=== PATIENT | male | born 1965 | race African-American/Black ===

== ENCOUNTER 2017-11-28 13:13 | Inpatient (IN) | payer OTHER ==
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
--- NOTE | 2017-11-28 15:56 | HP ---
ADALBERTO MURPHY Rehab Assess/Revision - Admission History Admitted to Rehab from: [facility] Date of Admission to Rehab: 11/28/17 - Vital signs Vital Signs: Vital Signs Period Temp Pulse Resp BP Sys/Shrestha Pulse Ox Last 24 Hr 98 F 79 18 109/69 - Findings Detox History & Physical reviewed: Yes Concur with findings: Yes Comments/Additional Findings: FOR REHAB PROTOCOL Inpatient Rehab Admission - Initial Determination Are CD services needed?: Yes Free of communicable disease: Yes Not in need of hospitalization: Yes - Rehab Admission Criteria Previous failed treatment: Yes Poor recovery environment: Yes Comorbidities: Yes Lacks judgement: No Patient is meeting Inpatient Rehab admission criteria:: Yes
[2017-11-28] MEDS ORDERED: IBUPROFEN 400 MG TABLET (FP) PO PRN (15:57)
[2017-11-28] MEDS ORDERED: ACETAMINOPHEN 325 MG TABLET (FP) PO PRN (15:57)
[2017-11-28] MEDS ORDERED: guaiFENesin/D-METHORPHAN HB 10 ML UNIT-DOSE CUPS PO PRN (15:57)
[2017-11-28] MEDS ORDERED: MAG HYDROX/AL HYDROX/SIMETH 30 ML UNIT-DOSE CUP PO PRN (15:57)
[2017-11-28] MEDS ORDERED: P-EPHED 60MG/TRIPROLIDI 2.5MG TABLET PO PRN (15:57)
[2017-11-28] MEDS ORDERED: MAGNESIUM CITRATE 300 ML BOTTLE PO PRN (15:57)
[2017-11-28] MEDS ORDERED: NICOTINE POLACRILEX 2 MG GUM BUC PRN (15:57)
[2017-11-28] MEDS ORDERED: MAGNESIUM HYDROX 2400MG/30ML ORAL SUSPENSION 30 ML CUP PO PRN (15:57)
[2017-11-28] MEDS ORDERED: LOPERAMIDE HCL 2 MG CAPSULE PO PRN (15:57)
[2017-11-28] MEDS ORDERED: hydrOXYzine PAMOATE 50 MG CAPSULE (FP) PO PRN (15:57)
[2017-11-28] MEDS ORDERED: MENTHOL/PHENOL 1 EACH UD MM PRN (15:57)
[2017-11-28] MEDS: THIAMINE HCL 100 MG TABLET (FP) PO SCH (21:32)
[2017-11-28] MEDS: DIVALPROEX SODIUM 250 MG TABLET E.C. PO SCH (21:32)
[2017-11-28] MEDS: MELATONIN 5 MG TABLETS PO SCH (21:32)
[2017-11-29] MEDS: DIVALPROEX SODIUM 250 MG TABLET E.C. PO SCH ×2 (10:20→21:43)
[2017-11-29] MEDS: PANTOPRAZOLE 40 MG TABLET (FP) PO SCH (10:20)
[2017-11-29] MEDS: PRENATAL VITAMINS W/ FOLIC ACID TABLET (FP) PO SCH (10:20)
[2017-11-29] MEDS: NICOTINE 21 MG/24 HOURS TOPICAL PATCH TD SCH (10:20)
[2017-11-29] MEDS: MELATONIN 5 MG TABLETS PO SCH (21:42)
[2017-11-29] MEDS: THIAMINE HCL 100 MG TABLET (FP) PO SCH (21:43)
[2017-11-30] MEDS: PANTOPRAZOLE 40 MG TABLET (FP) PO SCH (09:56)
[2017-11-30] MEDS: NICOTINE 21 MG/24 HOURS TOPICAL PATCH TD SCH (09:56)
[2017-11-30] MEDS: DIVALPROEX SODIUM 250 MG TABLET E.C. PO SCH ×2 (09:56→21:11)
[2017-11-30] MEDS: PRENATAL VITAMINS W/ FOLIC ACID TABLET (FP) PO SCH (09:56)
[2017-11-30] MEDS: THIAMINE HCL 100 MG TABLET (FP) PO SCH (21:11)
[2017-11-30] MEDS: MELATONIN 5 MG TABLETS PO SCH (21:11)
[2017-12-01] MEDS: PANTOPRAZOLE 40 MG TABLET (FP) PO SCH (10:45)
[2017-12-01] MEDS: PRENATAL VITAMINS W/ FOLIC ACID TABLET (FP) PO SCH (10:45)
[2017-12-01] MEDS: NICOTINE 21 MG/24 HOURS TOPICAL PATCH TD SCH (10:46)
[2017-12-01] MEDS: DIVALPROEX SODIUM 250 MG TABLET E.C. PO SCH ×2 (12:19→21:46)
[2017-12-01] MEDS: MELATONIN 5 MG TABLETS PO SCH (21:46)
[2017-12-01] MEDS: THIAMINE HCL 100 MG TABLET (FP) PO SCH (21:47)
[2017-12-02] MEDS: DIVALPROEX SODIUM 250 MG TABLET E.C. PO SCH ×2 (10:08→21:32)
[2017-12-02] MEDS: NICOTINE 21 MG/24 HOURS TOPICAL PATCH TD SCH (10:09)
[2017-12-02] MEDS: PANTOPRAZOLE 40 MG TABLET (FP) PO SCH (10:09)
[2017-12-02] MEDS: PRENATAL VITAMINS W/ FOLIC ACID TABLET (FP) PO SCH (10:09)
[2017-12-02] MEDS: THIAMINE HCL 100 MG TABLET (FP) PO SCH (21:32)
[2017-12-02] MEDS: MELATONIN 5 MG TABLETS PO SCH (21:32)
[2017-12-03] MEDS: PRENATAL VITAMINS W/ FOLIC ACID TABLET (FP) PO SCH (09:56)
[2017-12-03] MEDS: NICOTINE 21 MG/24 HOURS TOPICAL PATCH TD SCH (09:56)
[2017-12-03] MEDS: DIVALPROEX SODIUM 250 MG TABLET E.C. PO SCH ×2 (09:56→21:29)
[2017-12-03] MEDS: PANTOPRAZOLE 40 MG TABLET (FP) PO SCH (09:56)
--- NOTE | 2017-12-03 12:37 | PN ---
Psychiatric Progress Note Vital Signs: Vital Signs Period Temp Pulse Resp BP Sys/Shrestha Pulse Ox Last 24 Hr 98.3 F 63 18-18 125/80 Date of Session: 12/03/17 Chief Complaint:: "I can't sleep." HPI: Pt. admitted to for alcohol and cocaine dependence. ROS: Unremarkable Current Medications: Active Medications Generic Name Dose Route Start Last Admin Trade Name Freq PRN Reason Stop Dose Admin Acetaminophen 650 mg 11/28/17 15:57 Tylenol - PO Q4H PRN FEVER Al Hydroxide/Mg Hydroxide 30 ml 11/28/17 15:57 Mylanta Oral Suspension - PO Q6H PRN DYSPEPSIA Bupropion HCl 150 mg 11/29/17 10:00 12/03/17 09:56 Wellbutrin Xl - PO 150 mg DAILY NELLY Administration Divalproex Sodium 250 mg 11/28/17 22:00 12/03/17 09:56 Depakote - PO 250 mg BID NELLY Administration Eucalyptus/Menthol/Phenol/Sorbitol 1 each 11/28/17 15:57 Cepastat Lozenge - MM Q4H PRN SORE THROAT Guaifenesin 10 ml 11/28/17 15:57 Robitussin Dm - PO Q6H PRN COUGH Hydroxyzine Pamoate 50 mg 11/28/17 15:57 12/03/17 03:42 Vistaril - PO 50 mg Q4H PRN Administration AGITATION Ibuprofen 400 mg 11/28/17 15:57 Motrin - PO Q6H PRN Pain Level 4-6 Loperamide HCl 4 mg 11/28/17 15:57 Imodium - PO Q6H PRN DIARRHEA Magnesium Citrate 300 ml 11/28/17 15:57 Citroma - PO Q48H PRN CONSTIPATION Magnesium Hydroxide 30 ml 11/28/17 15:57 Milk Of Magnesia - PO DAILY PRN CONSTIPATION Melatonin 5 mg 11/28/17 22:00 12/02/17 21:32 Melatonin PO 5 mg HS NELLY Administration Nicotine 21 mg 11/29/17 10:00 12/03/17 09:56 Nicoderm Patch - TD Not Given DAILY NELLY Nicotine Polacrilex 2 mg 11/28/17 15:57 Nicorette Gum - BUC Q2H PRN NICOTINE REPLACEMENT RX Pantoprazole Sodium 40 mg 11/29/17 10:00 12/03/17 09:56 Protonix - PO 40 mg DAILY NELLY Administration Multivit/Folic Acid/Iron 1 tab 11/29/17 10:00 12/03/17 09:56 Vitamins (Sjr) - PO 1 tab DAILY NELLY Administration Pseudoephedrine/Triprolidine 1 combo 11/28/17 15:57 Actifed - PO TID PRN NASAL CONGESTION Thiamine HCl 100 mg 11/28/17 22:00 12/02/17 21:32 Vitamin B1 - PO 100 mg HS NELLY Administration Medication(s) Change(s): Yes. Will add trazodone 50mg qhs. Current Side Effect: No Lab tests ordered: No Lab tests reviewed: Yes Provider note:: Pt. c/o difficulty sleeping. Chart reviewed. Dr. Taylor's notes read and appreciated. Patient's trazodone was initally held due to oversedation upon admission. Today patient reports difficulty sleeping and is requesting a sleep aid. Will order trazodone 50mg qhs. Benefits and side effects discussed. Pt made aware of Priapism when taking trazdone. Verbal consent given. Will continue to monitor. Total face to face time:: 25 Mental Status Exam - Mental Status Exam Alert and Oriented to: Time, Place, Person Cognitive Function: Good Patient Appearance: Well Groomed Mood: Euthymic Affect: Mood Congruent Patient Behavior: Cooperative Speech Pattern: Appropriate Voice Loudness: Normal Thought Process: Goal Oriented Thought Disorder: Not Present Hallucinations: Denies Suicidal Ideation: Denies Homicidal Ideation: Denies Insight/Judgement: Poor Sleep: Poorly Appetite: Fair Muscle strength/Tone: Normal Gait/Station: Normal Psychiatric Treatment Plan - Problem List (1) Nicotine dependence Current Visit: Yes Qualifiers: Nicotine product type: cigarettes Substance use status: uncomplicated Qualified Code(s): F17.210 - Nicotine dependence, cigarettes, uncomplicated (2) Bipolar disorder Current Visit: Yes Qualifiers: Current bipolar episode type: depressed Psychotic features: without psychotic features Comment: History. (3) Posttraumatic stress disorder Current Visit: Yes (4) Alcohol dependence Current Visit: Yes (5) Cocaine dependence Current Visit: Yes
--- NOTE | 2017-12-03 17:25 | PN ---
[facility] Progress Note Note: Patient reports having rash to feet. +itching. No open areas. Obj: Feet with dry, cracked heels. +rash in between toes. A/P: Fungal rash Will order Nystatin Powder topically BID Monitor clinically
[2017-12-03] MEDS: traZODone HCL 50 MG TABLET (FP) PO SCH (21:29)
[2017-12-03] MEDS: MELATONIN 5 MG TABLETS PO SCH (21:29)
[2017-12-03] MEDS: THIAMINE HCL 100 MG TABLET (FP) PO SCH (21:29)
[2017-12-04] MEDS: PRENATAL VITAMINS W/ FOLIC ACID TABLET (FP) PO SCH (10:13)
[2017-12-04] MEDS: NICOTINE 21 MG/24 HOURS TOPICAL PATCH TD SCH (10:13)
[2017-12-04] MEDS: DIVALPROEX SODIUM 250 MG TABLET E.C. PO SCH ×2 (10:13→22:01)
[2017-12-04] MEDS: PANTOPRAZOLE 40 MG TABLET (FP) PO SCH (10:13)
[2017-12-04] MEDS: NYSTATIN POWDER 100,000 UNITS/GM - 15 GM TOPICAL POWDER TP SCH (10:46)
[2017-12-04] MEDS: traZODone HCL 50 MG TABLET (FP) PO SCH (22:01)
[2017-12-04] MEDS: THIAMINE HCL 100 MG TABLET (FP) PO SCH (22:01)
[2017-12-04] MEDS: MELATONIN 5 MG TABLETS PO SCH (22:01)
[2017-12-05] MEDS: PRENATAL VITAMINS W/ FOLIC ACID TABLET (FP) PO SCH (10:12)
[2017-12-05] MEDS: NICOTINE 21 MG/24 HOURS TOPICAL PATCH TD SCH (10:12)
[2017-12-05] MEDS: PANTOPRAZOLE 40 MG TABLET (FP) PO SCH (10:12)
[2017-12-05] MEDS: DIVALPROEX SODIUM 250 MG TABLET E.C. PO SCH ×2 (10:12→21:33)
[2017-12-05] MEDS: NYSTATIN POWDER 100,000 UNITS/GM - 15 GM TOPICAL POWDER TP SCH ×2 (11:00→11:37)
[2017-12-05] MEDS: traZODone HCL 50 MG TABLET (FP) PO SCH (21:33)
[2017-12-05] MEDS: THIAMINE HCL 100 MG TABLET (FP) PO SCH (21:33)
[2017-12-05] MEDS: MELATONIN 5 MG TABLETS PO SCH (21:33)
[2017-12-06] MEDS: DIVALPROEX SODIUM 250 MG TABLET E.C. PO SCH ×2 (10:37→21:53)
[2017-12-06] MEDS: PANTOPRAZOLE 40 MG TABLET (FP) PO SCH (10:37)
[2017-12-06] MEDS: PRENATAL VITAMINS W/ FOLIC ACID TABLET (FP) PO SCH (10:37)
[2017-12-06] MEDS: NICOTINE 21 MG/24 HOURS TOPICAL PATCH TD SCH (10:38)
[2017-12-06] MEDS: NYSTATIN POWDER 100,000 UNITS/GM - 15 GM TOPICAL POWDER TP SCH (10:38)
[2017-12-06] MEDS: traZODone HCL 50 MG TABLET (FP) PO SCH (21:53)
[2017-12-06] MEDS: MELATONIN 5 MG TABLETS PO SCH (21:53)
[2017-12-06] MEDS: THIAMINE HCL 100 MG TABLET (FP) PO SCH (21:53)
[2017-12-07] MEDS: DIVALPROEX SODIUM 250 MG TABLET E.C. PO SCH ×2 (10:45→21:22)
[2017-12-07] MEDS: PANTOPRAZOLE 40 MG TABLET (FP) PO SCH (10:45)
[2017-12-07] MEDS: PRENATAL VITAMINS W/ FOLIC ACID TABLET (FP) PO SCH (10:45)
[2017-12-07] MEDS: NICOTINE 21 MG/24 HOURS TOPICAL PATCH TD SCH (10:46)
[2017-12-07] MEDS: NYSTATIN POWDER 100,000 UNITS/GM - 15 GM TOPICAL POWDER TP SCH (10:46)
[2017-12-07] MEDS: MELATONIN 5 MG TABLETS PO SCH (21:22)
[2017-12-07] MEDS: THIAMINE HCL 100 MG TABLET (FP) PO SCH (21:22)
[2017-12-07] MEDS: traZODone HCL 50 MG TABLET (FP) PO SCH (21:22)
[2017-12-08] MEDS: PRENATAL VITAMINS W/ FOLIC ACID TABLET (FP) PO SCH (10:17)
[2017-12-08] MEDS: PANTOPRAZOLE 40 MG TABLET (FP) PO SCH (10:17)
[2017-12-08] MEDS: NYSTATIN POWDER 100,000 UNITS/GM - 15 GM TOPICAL POWDER TP SCH (10:17)
[2017-12-08] MEDS: DIVALPROEX SODIUM 250 MG TABLET E.C. PO SCH ×2 (10:17→22:00)
[2017-12-08] MEDS: NICOTINE 21 MG/24 HOURS TOPICAL PATCH TD SCH (10:18)
[2017-12-08] MEDS: THIAMINE HCL 100 MG TABLET (FP) PO SCH (21:59)
[2017-12-08] MEDS: traZODone HCL 50 MG TABLET (FP) PO SCH (22:00)
[2017-12-08] MEDS: MELATONIN 5 MG TABLETS PO SCH (22:00)
[2017-12-09] MEDS: PRENATAL VITAMINS W/ FOLIC ACID TABLET (FP) PO SCH (10:28)
[2017-12-09] MEDS: PANTOPRAZOLE 40 MG TABLET (FP) PO SCH (10:28)
[2017-12-09] MEDS: DIVALPROEX SODIUM 250 MG TABLET E.C. PO SCH ×2 (10:28→21:31)
[2017-12-09] MEDS: NYSTATIN POWDER 100,000 UNITS/GM - 15 GM TOPICAL POWDER TP SCH (10:29)
[2017-12-09] MEDS: NICOTINE 21 MG/24 HOURS TOPICAL PATCH TD SCH (10:30)
[2017-12-09] MEDS: MELATONIN 5 MG TABLETS PO SCH (21:31)
[2017-12-09] MEDS: THIAMINE HCL 100 MG TABLET (FP) PO SCH (21:31)
[2017-12-09] MEDS: traZODone HCL 50 MG TABLET (FP) PO SCH (21:31)
[2017-12-10] MEDS: PRENATAL VITAMINS W/ FOLIC ACID TABLET (FP) PO SCH (10:34)
[2017-12-10] MEDS: DIVALPROEX SODIUM 250 MG TABLET E.C. PO SCH ×2 (10:34→21:36)
[2017-12-10] MEDS: PANTOPRAZOLE 40 MG TABLET (FP) PO SCH (10:34)
[2017-12-10] MEDS: NICOTINE 21 MG/24 HOURS TOPICAL PATCH TD SCH (10:35)
[2017-12-10] MEDS: NYSTATIN POWDER 100,000 UNITS/GM - 15 GM TOPICAL POWDER TP SCH (10:35)
[2017-12-10] MEDS: MELATONIN 5 MG TABLETS PO SCH (21:36)
[2017-12-10] MEDS: traZODone HCL 50 MG TABLET (FP) PO SCH (21:36)
[2017-12-10] MEDS: THIAMINE HCL 100 MG TABLET (FP) PO SCH (21:36)
[2017-12-11] MEDS: NICOTINE 21 MG/24 HOURS TOPICAL PATCH TD SCH (10:23)
[2017-12-11] MEDS: PANTOPRAZOLE 40 MG TABLET (FP) PO SCH (10:23)
[2017-12-11] MEDS: DIVALPROEX SODIUM 250 MG TABLET E.C. PO SCH ×2 (10:23→21:56)
[2017-12-11] MEDS: PRENATAL VITAMINS W/ FOLIC ACID TABLET (FP) PO SCH (10:23)
[2017-12-11] MEDS: NYSTATIN POWDER 100,000 UNITS/GM - 15 GM TOPICAL POWDER TP SCH (10:24)
[2017-12-11] MEDS: traZODone HCL 50 MG TABLET (FP) PO SCH (21:56)
[2017-12-11] MEDS: MELATONIN 5 MG TABLETS PO SCH (21:56)
[2017-12-11] MEDS: THIAMINE HCL 100 MG TABLET (FP) PO SCH (21:56)
[2017-12-12] MEDS: PANTOPRAZOLE 40 MG TABLET (FP) PO SCH (10:31)
[2017-12-12] MEDS: DIVALPROEX SODIUM 250 MG TABLET E.C. PO SCH ×2 (10:31→21:33)
[2017-12-12] MEDS: NYSTATIN POWDER 100,000 UNITS/GM - 15 GM TOPICAL POWDER TP SCH (10:31)
[2017-12-12] MEDS: NICOTINE 21 MG/24 HOURS TOPICAL PATCH TD SCH (10:31)
[2017-12-12] MEDS: PRENATAL VITAMINS W/ FOLIC ACID TABLET (FP) PO SCH (10:31)
[2017-12-12] MEDS: traZODone HCL 50 MG TABLET (FP) PO SCH (21:33)
[2017-12-12] MEDS: MELATONIN 5 MG TABLETS PO SCH (21:33)
[2017-12-12] MEDS: THIAMINE HCL 100 MG TABLET (FP) PO SCH (21:33)
[2017-12-13] MEDS: DIVALPROEX SODIUM 250 MG TABLET E.C. PO SCH ×2 (10:22→21:45)
[2017-12-13] MEDS: NICOTINE 21 MG/24 HOURS TOPICAL PATCH TD SCH (10:22)
[2017-12-13] MEDS: PRENATAL VITAMINS W/ FOLIC ACID TABLET (FP) PO SCH (10:22)
[2017-12-13] MEDS: PANTOPRAZOLE 40 MG TABLET (FP) PO SCH (10:22)
[2017-12-13] MEDS: NYSTATIN POWDER 100,000 UNITS/GM - 15 GM TOPICAL POWDER TP SCH (10:23)
[2017-12-13] MEDS: THIAMINE HCL 100 MG TABLET (FP) PO SCH (21:45)
[2017-12-13] MEDS: traZODone HCL 50 MG TABLET (FP) PO SCH (21:45)
[2017-12-13] MEDS: MELATONIN 5 MG TABLETS PO SCH (21:45)
[2017-12-14] MEDS: PANTOPRAZOLE 40 MG TABLET (FP) PO SCH (10:06)
[2017-12-14] MEDS: NYSTATIN POWDER 100,000 UNITS/GM - 15 GM TOPICAL POWDER TP SCH (10:06)
[2017-12-14] MEDS: DIVALPROEX SODIUM 250 MG TABLET E.C. PO SCH ×2 (10:06→21:18)
[2017-12-14] MEDS: NICOTINE 21 MG/24 HOURS TOPICAL PATCH TD SCH (10:06)
[2017-12-14] MEDS: PRENATAL VITAMINS W/ FOLIC ACID TABLET (FP) PO SCH (10:06)
[2017-12-14] MEDS: THIAMINE HCL 100 MG TABLET (FP) PO SCH (21:17)
[2017-12-14] MEDS: traZODone HCL 50 MG TABLET (FP) PO SCH (21:18)
[2017-12-14] MEDS: MELATONIN 5 MG TABLETS PO SCH (21:18)
[2017-12-15] MEDS: PRENATAL VITAMINS W/ FOLIC ACID TABLET (FP) PO SCH (10:49)
[2017-12-15] MEDS: NICOTINE 21 MG/24 HOURS TOPICAL PATCH TD SCH (10:49)
[2017-12-15] MEDS: PANTOPRAZOLE 40 MG TABLET (FP) PO SCH (10:49)
[2017-12-15] MEDS: NYSTATIN POWDER 100,000 UNITS/GM - 15 GM TOPICAL POWDER TP SCH (10:49)
[2017-12-15] MEDS: DIVALPROEX SODIUM 250 MG TABLET E.C. PO SCH ×2 (10:49→21:27)
[2017-12-15] MEDS: traZODone HCL 50 MG TABLET (FP) PO SCH (21:27)
[2017-12-15] MEDS: THIAMINE HCL 100 MG TABLET (FP) PO SCH (21:27)
[2017-12-15] MEDS: MELATONIN 5 MG TABLETS PO SCH (21:27)
[2017-12-15] MEDS: NYSTATIN 100000 UNIT/GM TOPICAL OINTMENT 15 GM TUBE TP SCH (21:28)
[2017-12-16] MEDS: PRENATAL VITAMINS W/ FOLIC ACID TABLET (FP) PO SCH (10:36)
[2017-12-16] MEDS: NICOTINE 21 MG/24 HOURS TOPICAL PATCH TD SCH (10:36)
[2017-12-16] MEDS: DIVALPROEX SODIUM 250 MG TABLET E.C. PO SCH ×2 (10:36→21:20)
[2017-12-16] MEDS: NYSTATIN 100000 UNIT/GM TOPICAL OINTMENT 15 GM TUBE TP SCH ×2 (10:36→21:21)
[2017-12-16] MEDS: PANTOPRAZOLE 40 MG TABLET (FP) PO SCH (10:36)
[2017-12-16] MEDS: MELATONIN 5 MG TABLETS PO SCH (21:20)
[2017-12-16] MEDS: THIAMINE HCL 100 MG TABLET (FP) PO SCH (21:20)
[2017-12-16] MEDS: traZODone HCL 50 MG TABLET (FP) PO SCH (21:20)
[2017-12-17] MEDS: PANTOPRAZOLE 40 MG TABLET (FP) PO SCH (10:14)
[2017-12-17] MEDS: NYSTATIN 100000 UNIT/GM TOPICAL OINTMENT 15 GM TUBE TP SCH ×2 (10:14→21:58)
[2017-12-17] MEDS: DIVALPROEX SODIUM 250 MG TABLET E.C. PO SCH ×2 (10:14→21:57)
[2017-12-17] MEDS: PRENATAL VITAMINS W/ FOLIC ACID TABLET (FP) PO SCH (10:14)
[2017-12-17] MEDS: NICOTINE 21 MG/24 HOURS TOPICAL PATCH TD SCH (10:14)
[2017-12-17] MEDS: traZODone HCL 50 MG TABLET (FP) PO SCH (21:57)
[2017-12-17] MEDS: MELATONIN 5 MG TABLETS PO SCH (21:57)
[2017-12-17] MEDS: THIAMINE HCL 100 MG TABLET (FP) PO SCH (21:57)
[2017-12-18] MEDS: DIVALPROEX SODIUM 250 MG TABLET E.C. PO SCH ×2 (10:17→21:47)
[2017-12-18] MEDS: PRENATAL VITAMINS W/ FOLIC ACID TABLET (FP) PO SCH (10:17)
[2017-12-18] MEDS: NYSTATIN 100000 UNIT/GM TOPICAL OINTMENT 15 GM TUBE TP SCH ×2 (10:18→21:48)
[2017-12-18] MEDS: NICOTINE 21 MG/24 HOURS TOPICAL PATCH TD SCH (10:18)
[2017-12-18] MEDS: PANTOPRAZOLE 40 MG TABLET (FP) PO SCH (10:18)
[2017-12-18] MEDS: MELATONIN 5 MG TABLETS PO SCH (21:47)
[2017-12-18] MEDS: traZODone HCL 50 MG TABLET (FP) PO SCH (21:47)
[2017-12-18] MEDS: THIAMINE HCL 100 MG TABLET (FP) PO SCH (21:47)
[2017-12-19] MEDS: NICOTINE 21 MG/24 HOURS TOPICAL PATCH TD SCH (10:24)
[2017-12-19] MEDS: DIVALPROEX SODIUM 250 MG TABLET E.C. PO SCH ×2 (10:24→21:40)
[2017-12-19] MEDS: NYSTATIN 100000 UNIT/GM TOPICAL OINTMENT 15 GM TUBE TP SCH ×2 (10:24→21:41)
[2017-12-19] MEDS: PANTOPRAZOLE 40 MG TABLET (FP) PO SCH (10:24)
[2017-12-19] MEDS: PRENATAL VITAMINS W/ FOLIC ACID TABLET (FP) PO SCH (10:24)
[2017-12-19] MEDS: traZODone HCL 50 MG TABLET (FP) PO SCH (21:40)
[2017-12-19] MEDS: MELATONIN 5 MG TABLETS PO SCH (21:40)
[2017-12-19] MEDS: THIAMINE HCL 100 MG TABLET (FP) PO SCH (21:40)
[2017-12-20] MEDS: NICOTINE 21 MG/24 HOURS TOPICAL PATCH TD SCH (09:58)
[2017-12-20] MEDS: PRENATAL VITAMINS W/ FOLIC ACID TABLET (FP) PO SCH (09:58)
[2017-12-20] MEDS: NYSTATIN 100000 UNIT/GM TOPICAL OINTMENT 15 GM TUBE TP SCH ×2 (09:58→21:31)
[2017-12-20] MEDS: PANTOPRAZOLE 40 MG TABLET (FP) PO SCH (09:58)
[2017-12-20] MEDS: DIVALPROEX SODIUM 250 MG TABLET E.C. PO SCH ×2 (09:58→21:31)
[2017-12-20] MEDS: MELATONIN 5 MG TABLETS PO SCH (21:30)
[2017-12-20] MEDS: THIAMINE HCL 100 MG TABLET (FP) PO SCH (21:31)
[2017-12-20] MEDS: traZODone HCL 50 MG TABLET (FP) PO SCH (21:31)
[2017-12-21] MEDS: DIVALPROEX SODIUM 250 MG TABLET E.C. PO SCH ×2 (10:14→21:31)
[2017-12-21] MEDS: NYSTATIN 100000 UNIT/GM TOPICAL OINTMENT 15 GM TUBE TP SCH ×2 (10:14→22:36)
[2017-12-21] MEDS: PRENATAL VITAMINS W/ FOLIC ACID TABLET (FP) PO SCH (10:14)
[2017-12-21] MEDS: PANTOPRAZOLE 40 MG TABLET (FP) PO SCH (10:15)
[2017-12-21] MEDS: NICOTINE 21 MG/24 HOURS TOPICAL PATCH TD SCH (10:15)
[2017-12-21] MEDS: THIAMINE HCL 100 MG TABLET (FP) PO SCH (21:31)
[2017-12-21] MEDS: MELATONIN 5 MG TABLETS PO SCH (21:32)
[2017-12-21] MEDS: traZODone HCL 50 MG TABLET (FP) PO SCH (21:32)
[2017-12-22] MEDS: PRENATAL VITAMINS W/ FOLIC ACID TABLET (FP) PO SCH (10:49)
[2017-12-22] MEDS: PANTOPRAZOLE 40 MG TABLET (FP) PO SCH (10:49)
[2017-12-22] MEDS: DIVALPROEX SODIUM 250 MG TABLET E.C. PO SCH ×2 (10:49→21:38)
[2017-12-22] MEDS: NICOTINE 21 MG/24 HOURS TOPICAL PATCH TD SCH (10:50)
[2017-12-22] MEDS: NYSTATIN 100000 UNIT/GM TOPICAL OINTMENT 15 GM TUBE TP SCH ×2 (12:20→21:39)
[2017-12-22] MEDS: MELATONIN 5 MG TABLETS PO SCH (21:38)
[2017-12-22] MEDS: THIAMINE HCL 100 MG TABLET (FP) PO SCH (21:39)
[2017-12-22] MEDS: traZODone HCL 50 MG TABLET (FP) PO SCH (21:39)
[2017-12-23] MEDS: PRENATAL VITAMINS W/ FOLIC ACID TABLET (FP) PO SCH (10:12)
[2017-12-23] MEDS: PANTOPRAZOLE 40 MG TABLET (FP) PO SCH (10:12)
[2017-12-23] MEDS: DIVALPROEX SODIUM 250 MG TABLET E.C. PO SCH ×2 (10:12→21:39)
[2017-12-23] MEDS: NYSTATIN 100000 UNIT/GM TOPICAL OINTMENT 15 GM TUBE TP SCH ×2 (10:13→21:39)
[2017-12-23] MEDS: NICOTINE 21 MG/24 HOURS TOPICAL PATCH TD SCH (10:13)
[2017-12-23] MEDS: MELATONIN 5 MG TABLETS PO SCH (21:38)
[2017-12-23] MEDS: traZODone HCL 50 MG TABLET (FP) PO SCH (21:39)
[2017-12-23] MEDS: THIAMINE HCL 100 MG TABLET (FP) PO SCH (21:39)
[2017-12-24] MEDS: PRENATAL VITAMINS W/ FOLIC ACID TABLET (FP) PO SCH (10:21)
[2017-12-24] MEDS: DIVALPROEX SODIUM 250 MG TABLET E.C. PO SCH ×2 (10:21→21:25)
[2017-12-24] MEDS: NICOTINE 21 MG/24 HOURS TOPICAL PATCH TD SCH (10:21)
[2017-12-24] MEDS: PANTOPRAZOLE 40 MG TABLET (FP) PO SCH (10:21)
[2017-12-24] MEDS: NYSTATIN 100000 UNIT/GM TOPICAL OINTMENT 15 GM TUBE TP SCH ×2 (10:21→21:26)
[2017-12-24] MEDS: traZODone HCL 50 MG TABLET (FP) PO SCH (21:25)
[2017-12-24] MEDS: THIAMINE HCL 100 MG TABLET (FP) PO SCH (21:25)
[2017-12-24] MEDS: MELATONIN 5 MG TABLETS PO SCH (21:25)
[2017-12-25 06:53] VITALS: BP 123/84; PULSE 73; TEMP 98.4
[2017-12-25] MEDS: NICOTINE 21 MG/24 HOURS TOPICAL PATCH TD SCH (09:48)
[2017-12-25] MEDS: NYSTATIN 100000 UNIT/GM TOPICAL OINTMENT 15 GM TUBE TP SCH (09:48)
[2017-12-25] MEDS: DIVALPROEX SODIUM 250 MG TABLET E.C. PO SCH (09:48)
[2017-12-25] MEDS: PRENATAL VITAMINS W/ FOLIC ACID TABLET (FP) PO SCH (09:48)
[2017-12-25] MEDS: PANTOPRAZOLE 40 MG TABLET (FP) PO SCH (09:48)
--- NOTE | 2017-12-25 10:40 | PN ---
Psychiatric Progress Note Vital Signs: Vital Signs Period Temp Pulse Resp BP Sys/Shrestha Pulse Ox Last 24 Hr 98.4 F 73 16-18 123/84 Date of Session: 12/25/17 Chief Complaint:: discharge visit HPI: Patient has addresssed alcohol, nicotine and cocaine dependence, comorbid PTSD and Bipolar disorder. ROS: Acid reflux, lower back pain medically managed. Current Medications: Active Medications Generic Name Dose Route Start Last Admin Trade Name Freq PRN Reason Stop Dose Admin Acetaminophen 650 mg 11/28/17 15:57 Tylenol - PO Q4H PRN FEVER Al Hydroxide/Mg Hydroxide 30 ml 11/28/17 15:57 Mylanta Oral Suspension - PO Q6H PRN DYSPEPSIA Bupropion HCl 150 mg 11/29/17 10:00 12/25/17 09:48 Wellbutrin Xl - PO 150 mg DAILY NELLY Administration Divalproex Sodium 250 mg 11/28/17 22:00 12/25/17 09:48 Depakote - PO 250 mg BID NELLY Administration Eucalyptus/Menthol/Phenol/Sorbitol 1 each 11/28/17 15:57 Cepastat Lozenge - MM Q4H PRN SORE THROAT Guaifenesin 10 ml 11/28/17 15:57 Robitussin Dm - PO Q6H PRN COUGH Hydroxyzine Pamoate 50 mg 11/28/17 15:57 12/03/17 03:42 Vistaril - PO 50 mg Q4H PRN Administration AGITATION Ibuprofen 400 mg 11/28/17 15:57 12/05/17 10:14 Motrin - PO 400 mg Q6H PRN Administration Pain Level 4-6 Loperamide HCl 4 mg 11/28/17 15:57 Imodium - PO Q6H PRN DIARRHEA Magnesium Citrate 300 ml 11/28/17 15:57 Citroma - PO Q48H PRN CONSTIPATION Magnesium Hydroxide 30 ml 11/28/17 15:57 Milk Of Magnesia - PO DAILY PRN CONSTIPATION Melatonin 5 mg 11/28/17 22:00 12/24/17 21:25 Melatonin PO 5 mg HS NELLY Administration Nicotine 21 mg 11/29/17 10:00 12/25/17 09:48 Nicoderm Patch - TD Not Given DAILY NELLY Nicotine Polacrilex 2 mg 11/28/17 15:57 12/09/17 12:04 Nicorette Gum - BUC 2 mg Q2H PRN Administration NICOTINE REPLACEMENT RX Nystatin 1 applic 12/15/17 22:00 12/25/17 09:48 Mycostatin Ointment - TP 1 applic BID NELLY Administration Pantoprazole Sodium 40 mg 11/29/17 10:00 12/25/17 09:48 Protonix - PO 40 mg DAILY NELLY Administration Multivit/Folic Acid/Iron 1 tab 11/29/17 10:00 12/25/17 09:48 Vitamins (Sjr) - PO 1 tab DAILY NELLY Administration Pseudoephedrine/Triprolidine 1 combo 11/28/17 15:57 Actifed - PO TID PRN NASAL CONGESTION Thiamine HCl 100 mg 11/28/17 22:00 12/24/17 21:25 Vitamin B1 - PO 100 mg HS NELLY Administration Trazodone HCl 50 mg 12/03/17 22:00 12/24/17 21:25 Desyrel - PO 50 mg HS NELLY Administration Current Side Effect: No Lab tests ordered: No Lab tests reviewed: Yes Provider note:: Patient has completed today his treatment and met identified goals, he will continue to address his issues at [facility] outpatient treatment program. The patient focused on behaviors that contributes to relapses and importance changing attitudes for the utilization of supports to maintain sobriety. Depakote, Trazodone and Wellbutrin have been effective for mood stabilization and sleep improvement, medications well tolerated , scripts provided for 30 days, stable is for discharge today. Total face to face time:: 31 Mental Status Exam - Mental Status Exam Alert and Oriented to: Time, Place, Person Cognitive Function: Good Patient Appearance: Well Groomed Mood: Hopeful Affect: Appropriate, Mood Congruent Patient Behavior: Appropriate, Cooperative Speech Pattern: Clear, Appropriate Voice Loudness: Normal Thought Process: Intact, Goal Oriented Thought Disorder: Not Present Hallucinations: None Suicidal Ideation: None Homicidal Ideation: None Insight/Judgement: Good Sleep: Well Appetite: Good Muscle strength/Tone: Normal Gait/Station: Normal Psychiatric Treatment Plan - Problem List (1) Nicotine dependence Current Visit: Yes Qualifiers: Nicotine product type: cigarettes Substance use status: uncomplicated Qualified Code(s): F17.210 - Nicotine dependence, cigarettes, uncomplicated (2) Bipolar disorder Current Visit: Yes Qualifiers: Current bipolar episode type: depressed Psychotic features: without psychotic features Comment: History. (3) Chronic lower back pain Current Visit: No Qualifiers: Back pain laterality: unspecified (4) GERD (gastroesophageal reflux disease) Current Visit: No Qualifiers: Esophagitis presence: without esophagitis Qualified Code(s): K21.9 - Gastro -esophageal reflux disease without esophagitis (5) Posttraumatic stress disorder Current Visit: Yes (6) Alcohol dependence Current Visit: Yes (7) Cocaine dependence Current Visit: Yes
== END 2017-12-25 11:30 | disposition home or self-care (01) | DRG 772 ==
LOC: YASAS 13:13 → Y5N 13:14
PROVIDERS: ADMIT Psychiatry & Neurology Psychiatry; ATTEND Psychiatry & Neurology Psychiatry
PROC: HZ42ZZZ Group Counseling for Substance Abuse Treatment, Cognitive-Behavioral (ICD-10-PCS; principal; 2017-11-28)
DX: F10.20 Alcohol dependence, uncomplicated (principal); F14.20 Cocaine dependence, uncomplicated; F17.210 Nicotine dependence, cigarettes, uncomplicated; F31.9 Bipolar disorder, unspecified; F43.10 Post-traumatic stress disorder, unspecified; K21.9 Gastro-esophageal reflux disease without esophagitis; M54.5 Low back pain; G89.29 Other chronic pain

== ENCOUNTER 2018-10-01 09:35 | Inpatient (IN) | payer OTHER ==
[2018-10-01 10:11] VITALS: BMI 27.8
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
[2018-10-01] MEDS ORDERED: MAGNESIUM HYDROX 2400MG/30ML ORAL SUSPENSION 30 ML CUP PO PRN (12:10)
[2018-10-01] MEDS ORDERED: P-EPHED 60MG/TRIPROLIDI 2.5MG TABLET PO PRN (12:10)
[2018-10-01] MEDS ORDERED: MENTHOL/PHENOL 1 EACH UD MM PRN (12:10)
[2018-10-01] MEDS ORDERED: MAGNESIUM CITRATE 300 ML BOTTLE PO PRN (12:10)
[2018-10-01] MEDS ORDERED: guaiFENesin/D-METHORPHAN HB 10 ML UNIT-DOSE CUPS PO PRN (12:10)
[2018-10-01] MEDS ORDERED: ACETAMINOPHEN 325 MG TABLET (FP) PO PRN (12:10)
[2018-10-01] MEDS ORDERED: MAG HYDROX/AL HYDROX/SIMETH 30 ML UNIT-DOSE CUP PO PRN (12:10)
[2018-10-01] MEDS ORDERED: IBUPROFEN 400 MG TABLET (FP) PO PRN (12:10)
[2018-10-01] MEDS ORDERED: AMMONIUM LACTATE 12% LOTION 225 GM BOTTLE TP PRN (12:31)
[2018-10-01 14:33] LABS: HEMATOCRIT 37.5 % (35.4-49); HEMOGLOBIN 12.5 GM/dL (11.7-16.9); MCH 30.1 pg (25.7-33.7); MCHC 33.4 g/dl (32.0-35.9); MEAN PLT VOLUME 9.3 fl (7.5-11.1); PLATELET COUNT 193 K/MM3 (134-434); RBC 4.17 M/mm3 (4.00-5.60); RDW 15.1 % (11.9-15.9); WHITE BLOOD COUNT 3.8 K/mm3 (4.0-10.0)
[2018-10-01 14:48] LABS: ALBUMIN 3.8 g/dl (3.4-5.0); ALK PHOS 48 U/L (45-117); ANION GAP 5 MMOL/L (8-16); BILIRUBIN,TOTAL 0.4 mg/dL (0.2-1); BLOOD UREA NITROGEN 17 mg/dL (7-18); CALCIUM 8.7 mg/dL (8.5-10.1); CHLORIDE 103 mmol/L (98-107); CO2 31 mmol/L (21-32); GLUCOSE,RANDOM 88 mg/dL (74-106); POTASSIUM 3.9 mmol/L (3.5-5.1); SGOT/AST 9 U/L (15-37); SGPT/ALT 10 U/L (13-61); SODIUM 139 mmol/L (136-145); TOT PROT 7.2 g/dl (6.4-8.2)
[2018-10-01 17:27] LABS: URINE APPEARANCE CLEAR; URINE BILIRUBIN NEGATIVE (<2.0 mg/dL); URINE COLOR YELLOW; URINE GLUCOSE (UA) NEGATIVE (NEGATIVE); URINE KETONE NEGATIVE (NEGATIVE); URINE LEUK ESTERASE NEGATIVE (NEGATIVE); URINE NITRITE NEGATIVE (NEGATIVE); URINE PROTEIN NEGATIVE (NEGATIVE); URINE UROBILINOGEN NEGATIVE mg/dL (0.2-1.0)
[2018-10-01] MEDS: traZODone HCL 50 MG TABLET (FP) PO SCH (21:15)
[2018-10-01] MEDS: DIVALPROEX SODIUM 500 MG TABLET E.C. PO SCH (21:15)
[2018-10-01] MEDS: THIAMINE HCL 100 MG TABLET (FP) PO SCH (21:15)
[2018-10-01] MEDS ORDERED: DOXYCYCLINE HYCLATE 100 MG TABLET PO ONE (22:00)
[2018-10-01] MEDS ORDERED: MELATONIN 5 MG TABLETS PO PRN (22:00)
[2018-10-02] MEDS: PRENATAL VITAMINS W/ FOLIC ACID TABLET (FP) PO SCH (10:08)
[2018-10-02] MEDS: DIVALPROEX SODIUM 500 MG TABLET E.C. PO SCH ×2 (10:09→22:08)
[2018-10-02] MEDS: PANTOPRAZOLE 40 MG TABLET (FP) PO SCH (10:10)
--- NOTE | 2018-10-02 17:23 | PN ---
[facility] Progress Note Note: C/O ITCHINESS AND RASH ON FEET. WANTS FOOT CREAM. Vital Signs - 24 hr 10/02/18 10/02/18 10/02/18 00:43 03:30 06:59 Temperature 97.7 F Pulse Rate 62 Respiratory 18 18 18 Rate Blood Pressure 120/84 10/02/18 07:01 Temperature 97.7 F Pulse Rate 62 Respiratory 18 Rate Blood Pressure 120/84 FEET:DRY, SCALY. A:TINEA PEDIS PLAN:TINACTIN CREAM APPLY TO FEET DIRECTED.
[2018-10-02] MEDS: THIAMINE HCL 100 MG TABLET (FP) PO SCH (22:08)
[2018-10-02] MEDS: traZODone HCL 50 MG TABLET (FP) PO SCH (22:33)
[2018-10-02] MEDS: TOLNAFTATE 1% CREAM 15 GM TUBE TP SCH (22:33)
[2018-10-03] MEDS: PANTOPRAZOLE 40 MG TABLET (FP) PO SCH (10:01)
[2018-10-03] MEDS: PRENATAL VITAMINS W/ FOLIC ACID TABLET (FP) PO SCH (10:01)
[2018-10-03] MEDS: DIVALPROEX SODIUM 500 MG TABLET E.C. PO SCH ×2 (10:02→21:17)
[2018-10-03] MEDS: TOLNAFTATE 1% CREAM 15 GM TUBE TP SCH ×2 (10:03→21:18)
[2018-10-03] MEDS: traZODone HCL 50 MG TABLET (FP) PO SCH (21:18)
[2018-10-03] MEDS: THIAMINE HCL 100 MG TABLET (FP) PO SCH (22:37)
[2018-10-04] MEDS: PRENATAL VITAMINS W/ FOLIC ACID TABLET (FP) PO SCH (09:53)
[2018-10-04] MEDS: PANTOPRAZOLE 40 MG TABLET (FP) PO SCH (09:53)
[2018-10-04] MEDS: DIVALPROEX SODIUM 500 MG TABLET E.C. PO SCH ×2 (09:53→21:17)
[2018-10-04] MEDS: TOLNAFTATE 1% CREAM 15 GM TUBE TP SCH ×2 (09:54→21:18)
[2018-10-04] MEDS: traZODone HCL 50 MG TABLET (FP) PO SCH (21:17)
[2018-10-04] MEDS: THIAMINE HCL 100 MG TABLET (FP) PO SCH (21:17)
[2018-10-05] MEDS: PRENATAL VITAMINS W/ FOLIC ACID TABLET (FP) PO SCH (10:26)
[2018-10-05] MEDS: TOLNAFTATE 1% CREAM 15 GM TUBE TP SCH ×2 (10:26→21:29)
[2018-10-05] MEDS: DIVALPROEX SODIUM 500 MG TABLET E.C. PO SCH ×2 (10:26→21:29)
[2018-10-05] MEDS: PANTOPRAZOLE 40 MG TABLET (FP) PO SCH (10:27)
[2018-10-05] MEDS ORDERED: COLLOIDAL OATMEAL 1 BAR EACH TP PRN (11:06)
[2018-10-05] MEDS: THIAMINE HCL 100 MG TABLET (FP) PO SCH (21:29)
[2018-10-05] MEDS: traZODone HCL 50 MG TABLET (FP) PO SCH (21:29)
[2018-10-06] MEDS: DIVALPROEX SODIUM 500 MG TABLET E.C. PO SCH ×2 (10:49→21:19)
[2018-10-06] MEDS: PRENATAL VITAMINS W/ FOLIC ACID TABLET (FP) PO SCH (10:49)
[2018-10-06] MEDS: PANTOPRAZOLE 40 MG TABLET (FP) PO SCH (10:50)
[2018-10-06] MEDS: TOLNAFTATE 1% CREAM 15 GM TUBE TP SCH ×2 (10:53→21:20)
[2018-10-06] MEDS: THIAMINE HCL 100 MG TABLET (FP) PO SCH (21:19)
[2018-10-06] MEDS: traZODone HCL 50 MG TABLET (FP) PO SCH (21:19)
[2018-10-07] MEDS: DIVALPROEX SODIUM 500 MG TABLET E.C. PO SCH ×2 (10:40→21:32)
[2018-10-07] MEDS: PRENATAL VITAMINS W/ FOLIC ACID TABLET (FP) PO SCH (10:40)
[2018-10-07] MEDS: TOLNAFTATE 1% CREAM 15 GM TUBE TP SCH ×2 (10:40→21:56)
[2018-10-07] MEDS: PANTOPRAZOLE 40 MG TABLET (FP) PO SCH (10:40)
[2018-10-07] MEDS: THIAMINE HCL 100 MG TABLET (FP) PO SCH (21:32)
[2018-10-07] MEDS: traZODone HCL 50 MG TABLET (FP) PO SCH (21:32)
[2018-10-08] MEDS: DIVALPROEX SODIUM 500 MG TABLET E.C. PO SCH ×2 (10:02→21:18)
[2018-10-08] MEDS: PRENATAL VITAMINS W/ FOLIC ACID TABLET (FP) PO SCH (10:02)
[2018-10-08] MEDS: PANTOPRAZOLE 40 MG TABLET (FP) PO SCH (10:02)
[2018-10-08] MEDS: TOLNAFTATE 1% CREAM 15 GM TUBE TP SCH ×2 (10:03→21:19)
[2018-10-08] MEDS: THIAMINE HCL 100 MG TABLET (FP) PO SCH (21:18)
[2018-10-08] MEDS: traZODone HCL 50 MG TABLET (FP) PO SCH (21:18)
[2018-10-09] MEDS: DIVALPROEX SODIUM 500 MG TABLET E.C. PO SCH ×2 (10:08→21:31)
[2018-10-09] MEDS: TOLNAFTATE 1% CREAM 15 GM TUBE TP SCH ×2 (10:08→22:13)
[2018-10-09] MEDS: PANTOPRAZOLE 40 MG TABLET (FP) PO SCH (10:08)
[2018-10-09] MEDS: PRENATAL VITAMINS W/ FOLIC ACID TABLET (FP) PO SCH (10:08)
[2018-10-09] MEDS: THIAMINE HCL 100 MG TABLET (FP) PO SCH (21:31)
[2018-10-09] MEDS: traZODone HCL 50 MG TABLET (FP) PO SCH (21:31)
[2018-10-10] MEDS: PANTOPRAZOLE 40 MG TABLET (FP) PO SCH (10:09)
[2018-10-10] MEDS: DIVALPROEX SODIUM 500 MG TABLET E.C. PO SCH ×2 (10:09→21:23)
[2018-10-10] MEDS: PRENATAL VITAMINS W/ FOLIC ACID TABLET (FP) PO SCH (10:09)
[2018-10-10] MEDS: TOLNAFTATE 1% CREAM 15 GM TUBE TP SCH ×2 (10:09→21:24)
[2018-10-10] MEDS: traZODone HCL 50 MG TABLET (FP) PO SCH (21:23)
[2018-10-10] MEDS: THIAMINE HCL 100 MG TABLET (FP) PO SCH (21:23)
[2018-10-11] MEDS: DIVALPROEX SODIUM 500 MG TABLET E.C. PO SCH ×2 (09:42→21:23)
[2018-10-11] MEDS: PANTOPRAZOLE 40 MG TABLET (FP) PO SCH (09:42)
[2018-10-11] MEDS: PRENATAL VITAMINS W/ FOLIC ACID TABLET (FP) PO SCH (09:42)
[2018-10-11] MEDS: TOLNAFTATE 1% CREAM 15 GM TUBE TP SCH ×2 (09:43→21:23)
[2018-10-11] MEDS: THIAMINE HCL 100 MG TABLET (FP) PO SCH (21:23)
[2018-10-11] MEDS: traZODone HCL 50 MG TABLET (FP) PO SCH (21:23)
[2018-10-12] MEDS: PRENATAL VITAMINS W/ FOLIC ACID TABLET (FP) PO SCH (10:01)
[2018-10-12] MEDS: DIVALPROEX SODIUM 500 MG TABLET E.C. PO SCH ×2 (10:01→21:23)
[2018-10-12] MEDS: PANTOPRAZOLE 40 MG TABLET (FP) PO SCH (10:02)
[2018-10-12] MEDS: TOLNAFTATE 1% CREAM 15 GM TUBE TP SCH ×2 (10:02→21:25)
[2018-10-12] MEDS: traZODone HCL 50 MG TABLET (FP) PO SCH (21:23)
[2018-10-12] MEDS: THIAMINE HCL 100 MG TABLET (FP) PO SCH (21:23)
[2018-10-13] MEDS: DIVALPROEX SODIUM 500 MG TABLET E.C. PO SCH ×2 (10:27→21:21)
[2018-10-13] MEDS: PRENATAL VITAMINS W/ FOLIC ACID TABLET (FP) PO SCH (10:27)
[2018-10-13] MEDS: PANTOPRAZOLE 40 MG TABLET (FP) PO SCH (10:27)
[2018-10-13] MEDS: TOLNAFTATE 1% CREAM 15 GM TUBE TP SCH ×2 (10:28→21:22)
[2018-10-13] MEDS: THIAMINE HCL 100 MG TABLET (FP) PO SCH (21:21)
[2018-10-13] MEDS: traZODone HCL 50 MG TABLET (FP) PO SCH (21:21)
[2018-10-14] MEDS: PANTOPRAZOLE 40 MG TABLET (FP) PO SCH (09:59)
[2018-10-14] MEDS: PRENATAL VITAMINS W/ FOLIC ACID TABLET (FP) PO SCH (09:59)
[2018-10-14] MEDS: DIVALPROEX SODIUM 500 MG TABLET E.C. PO SCH ×2 (09:59→21:13)
[2018-10-14] MEDS: TOLNAFTATE 1% CREAM 15 GM TUBE TP SCH ×2 (10:00→21:13)
[2018-10-14] MEDS: THIAMINE HCL 100 MG TABLET (FP) PO SCH (21:13)
[2018-10-14] MEDS: traZODone HCL 50 MG TABLET (FP) PO SCH (21:13)
[2018-10-15 06:39] VITALS: PULSE 70
[2018-10-15] MEDS: DIVALPROEX SODIUM 500 MG TABLET E.C. PO SCH ×2 (10:33→21:27)
[2018-10-15] MEDS: PRENATAL VITAMINS W/ FOLIC ACID TABLET (FP) PO SCH (10:33)
[2018-10-15] MEDS: PANTOPRAZOLE 40 MG TABLET (FP) PO SCH (10:34)
[2018-10-15] MEDS: TOLNAFTATE 1% CREAM 15 GM TUBE TP SCH ×2 (10:35→21:28)
--- NOTE | 2018-10-15 13:25 | PN ---
[facility] Progress Note Note: PT SUCCESSFULLY COMPLETED REHAB AND SCHEDULED FOR DISCHARGE IN THE MORNING. PT REFERRED TO [facility], [address] [place] [address] FOR AFTERCARE. PT REPORTS HE HAS PRIMARY CARE AT [facility] ON [address] [place] [address] FOR MEDICAL MANAGEMENT. Vital Signs - 24 hr 10/15/18 10/15/18 10/15/18 00:30 03:30 06:38 Temperature 97.8 F Pulse Rate 70 Respiratory 18 18 18 Rate Blood Pressure 100/71 Laboratory Tests 10/01/18 10/01/18 10/01/18 13:07 13:25 13:25 WBC 3.8 L RBC 4.17 Hgb 12.5 Hct 37.5 MCV 90.0 MCH 30.1 MCHC 33.4 RDW 15.1 Plt Count 193 MPV 9.3 Sodium Potassium Chloride Carbon Dioxide Anion Gap BUN Creatinine Creat Clearance w eGFR Random Glucose Calcium Total Bilirubin AST ALT Alkaline Phosphatase Total Protein Albumin Urine Color Yellow Urine Appearance Clear Urine pH 5.0 Ur Specific [place] 1.027 Urine Protein Negative Urine Glucose (UA) Negative Urine Ketones Negative Urine Blood Negative Urine Nitrite Negative Urine Bilirubin Negative Urine Urobilinogen Negative Ur Leukocyte Esterase Negative RPR Titer HIV 1&2 Antibody Screen Negative HIV P24 Antigen Negative 10/01/18 10/01/18 13:25 13:25 WBC RBC Hgb Hct MCV MCH MCHC RDW Plt Count MPV Sodium 139 Potassium 3.9 Chloride 103 Carbon Dioxide 31 Anion Gap 5 L BUN 17 Creatinine 1.0 Creat Clearance w eGFR > 60 Random Glucose 88 Calcium 8.7 Total Bilirubin 0.4 AST 9 L ALT 10 L Alkaline Phosphatase 48 Total Protein 7.2 Albumin 3.8 Urine Color Urine Appearance Urine pH Ur Specific [place] Urine Protein Urine Glucose (UA) Urine Ketones Urine Blood Urine Nitrite Urine Bilirubin Urine Urobilinogen Ur Leukocyte Esterase RPR Titer Nonreactive HIV 1&2 Antibody Screen HIV P24 Antigen NAD PLAN;FOLLOW UP AT [facility] FOR CD AFTERCARE TREATMENT. FOLLOW UP AT [facility] FOR MEDICAL MANAGEMENT. .
[2018-10-15] MEDS: THIAMINE HCL 100 MG TABLET (FP) PO SCH (21:27)
[2018-10-15] MEDS: traZODone HCL 50 MG TABLET (FP) PO SCH (21:27)
[2018-10-16 06:42] VITALS: BP 107/82; TEMP 98.3
--- NOTE | 2018-10-16 09:21 | PN ---
[facility] Progress Note Note: PT DISCHARGED TODAY SCHEDULED. ALERT O X 3. NAD. SEE D/C NOTE ON 10/15/18. Vital Signs - 24 hr 10/16/18 10/16/18 10/16/18 00:30 03:30 06:41 Temperature 98.3 F Pulse Rate 70 Respiratory 18 18 18 Rate Blood Pressure 107/82 10/16/18 06:45 Temperature 98.3 F Pulse Rate 70 Respiratory 18 Rate Blood Pressure 107/82 FOLLOW UP RECOMMENDED.
[2018-10-16] MEDS: DIVALPROEX SODIUM 500 MG TABLET E.C. PO SCH (09:57)
[2018-10-16] MEDS: PRENATAL VITAMINS W/ FOLIC ACID TABLET (FP) PO SCH (09:57)
[2018-10-16] MEDS: PANTOPRAZOLE 40 MG TABLET (FP) PO SCH (09:57)
[2018-10-16] MEDS: TOLNAFTATE 1% CREAM 15 GM TUBE TP SCH (09:59)
== END 2018-10-16 10:00 | disposition home or self-care (01) | DRG 772 ==
LOC: YASAS 09:35 → Y5N 12:47
PROVIDERS: ADMIT Psychiatry & Neurology Psychiatry; ATTEND Psychiatry & Neurology Psychiatry
PROC: HZ42ZZZ Group Counseling for Substance Abuse Treatment, Cognitive-Behavioral (ICD-10-PCS; principal; 2018-10-01)
DX: F10.20 Alcohol dependence, uncomplicated (principal); F14.20 Cocaine dependence, uncomplicated; F31.9 Bipolar disorder, unspecified; B35.3 Tinea pedis; B35.1 Tinea unguium; K21.9 Gastro-esophageal reflux disease without esophagitis; Z87.438 Personal history of other diseases of male genital organs; Z87.891 Personal history of nicotine dependence
CPT/HCPCS: 36415; 80053; 81003; 85027; 86593; 87389

== ENCOUNTER 2024-07-10 14:17 | Inpatient (IN) | payer OTHER ==
[2024-07-10 15:34] VITALS: BMI 28.7
[2024-07-10] MEDS ORDERED: POLYETHYLENE GLYCOL (HEALTHYLAX) 3350 17 GM PACKET PO PRN (18:37)
[2024-07-10] MEDS ORDERED: BISMUTH SUBSALICYLATE 524 MG/30 ML PO PRN (18:37)
[2024-07-10] MEDS ORDERED: ACETAMINOPHEN 325 MG TABLET (FP) PO PRN (18:37)
[2024-07-10] MEDS ORDERED: NALOXONE (NARCAN) HCL 4 MG/0.1 ML SPRAY NS PRN (18:37)
[2024-07-10] MEDS ORDERED: MAGNESIUM HYDROX 2400MG/30ML ORAL SUSPENSION 30 ML CUP PO PRN (18:37)
[2024-07-10] MEDS ORDERED: BENZOCAINE/MENTHOL (CHLORASEPTIC ) LOZENGE MM PRN (18:37)
[2024-07-10] MEDS ORDERED: BENZONATATE 200 MG CAPSULE PO PRN (18:37)
[2024-07-10] MEDS ORDERED: IBUPROFEN 400 MG TABLET (FP) PO PRN (18:37)
[2024-07-10] MEDS ORDERED: LOPERAMIDE HCL 2 MG CAPSULE PO PRN (18:37)
[2024-07-10] MEDS ORDERED: guaiFENesin 600 MG TABLET.ER (FP) PO PRN (18:37)
[2024-07-10] MEDS ORDERED: DICYCLOMINE HCL 10 MG CAPSULE PO PRN (18:37)
[2024-07-10] MEDS ORDERED: chlordiazePOXIDE HCL 25 MG CAPSULE PO PRN (18:37)
[2024-07-10] MEDS ORDERED: ONDANSETRON *ODT* 4 MG TABLET SL PRN (18:37)
[2024-07-10] MEDS: chlordiazePOXIDE HCL 25 MG CAPSULE PO SCH (22:24)
[2024-07-10] MEDS: THIAMINE 100 MG TABLET PO SCH (22:24)
[2024-07-10] MEDS: MELATONIN 5 MG TABLETS PO SCH (22:27)
[2024-07-11] MEDS: IBUPROFEN 600 MG TABLET (FP) PO PRN (05:35)
[2024-07-11] MEDS: MAG HYDROX/AL HYDROX/SIMETH 30 ML UNIT-DOSE CUP PO PRN (07:47)
[2024-07-11 10:26] LABS: CHLORIDE 108 mmol/L (98-107); POTASSIUM 4.2 mmol/L (3.5-5.1); SODIUM 143 mmol/L (136-145)
[2024-07-11 10:29] LABS: HEMATOCRIT 38.2 % (35.4-49); HEMOGLOBIN 12.5 GM/dL (11.7-16.9); MCH 29.4 pg (25.7-33.7); MCHC 32.8 g/dl (32.0-35.9); MEAN CELL VOLUME 89.7 fl (80-96); MEAN PLT VOLUME 7.9 fl (7.5-11.1); PLATELET COUNT 256 10^3/uL (134-434); RBC 4.26 M/mm3 (4.00-5.60); RDW 14.7 % (11.9-15.9); WHITE BLOOD COUNT 7.4 K/mm3 (4.0-10.0)
[2024-07-11 10:43] LABS: ALBUMIN 3.4 g/dl (3.4-5.0); BLOOD UREA NITROGEN 17.2 mg/dL (7-18); GLUCOSE,RANDOM 96 mg/dL (74-106)
[2024-07-11 10:46] LABS: SGOT/AST 19 U/L (15-37); SGPT/ALT 19 U/L (13-61)
[2024-07-11 10:47] LABS: BILIRUBIN,TOTAL 0.5 mg/dL (0.2-1); TOT PROT 6.6 g/dl (6.4-8.2)
[2024-07-11 10:49] LABS: ALK PHOS 65 U/L (45-117)
[2024-07-11] MEDS: PANTOPRAZOLE 40 MG TABLET PO SCH (10:50)
[2024-07-11] MEDS: PRENATAL VITAMINS W/ FOLIC ACID TABLET (FP) PO SCH (10:50)
[2024-07-11 10:52] LABS: ANION GAP 4 mmol/L (4-13); CALCIUM 8.7 mg/dL (8.5-10.1); CO2 31 mmol/L (21-32)
[2024-07-11] MEDS: METHOCARBAMOL 500 MG TABLET PO PRN (19:42)
[2024-07-11] MEDS: traZODone HCL 100 MG TABLET (FP) PO SCH (22:25)
[2024-07-12] MEDS: chlordiazePOXIDE HCL 25 MG CAPSULE PO SCH (05:53)
[2024-07-13] MEDS ORDERED: chlordiazePOXIDE HCL 10 MG CAPSULE PO PRN
[2024-07-13] MEDS: chlordiazePOXIDE HCL 10 MG CAPSULE PO SCH (05:50)
[2024-07-14] MEDS: chlordiazePOXIDE HCL 10 MG CAPSULE PO SCH (05:58)
[2024-07-14] MEDS: hydrOXYzine PAMOATE 25 MG CAPSULE (FP) PO PRN (10:32)
[2024-07-15] MEDS: chlordiazePOXIDE HCL 10 MG CAPSULE PO ONE (05:51)
[2024-07-15 08:58] VITALS: BP 104/64; PULSE 73; RESP 18; TEMP 97.8
[2024-07-15] MEDS: NALOXONE (NYS OPIOID OVERDOSE PROGRAM) 4 MG/0.1 ML SPRAY NS PRN (09:12)
== END 2024-07-15 11:52 | disposition other institution (70) | DRG 774 ==
LOC: YASAS 14:17 → Y6N 18:32
PROVIDERS: ADMIT Allergy & Immunology; ATTEND Surgery
PROC: HZ2ZZZZ Detoxification Services for Substance Abuse Treatment (ICD-10-PCS; principal; 2024-07-10)
DX: F10.230 Alcohol dependence with withdrawal, uncomplicated (principal); F14.20 Cocaine dependence, uncomplicated; F17.210 Nicotine dependence, cigarettes, uncomplicated; F31.9 Bipolar disorder, unspecified; F19.282 Other psychoactive substance dependence with psychoactive substance-induced sleep disorder; F19.24 Other psychoactive substance dependence with psychoactive substance-induced mood disorder; K21.9 Gastro-esophageal reflux disease without esophagitis; M54.50 Low back pain, unspecified; G89.29 Other chronic pain
CPT/HCPCS: 36415; 80053; 80305; 80307; 85027; 86780; 87811; 93005; 93010

== ENCOUNTER 2024-07-15 11:54 | Inpatient (IN) | payer OTHER ==
[2024-07-15] MEDS ORDERED: NALOXONE HCL 0.4 MG/ML VIAL IVPUSH PRN (13:06)
[2024-07-15] MEDS ORDERED: guaiFENesin 600 MG TABLET.ER (FP) PO PRN (13:06)
[2024-07-15] MEDS ORDERED: NICOTINE 14 MG/24 HOURS TOPICAL PATCH TD PRN (13:06)
[2024-07-15] MEDS ORDERED: hydrOXYzine PAMOATE 25 MG CAPSULE (FP) PO PRN (13:06)
[2024-07-15] MEDS ORDERED: POLYETHYLENE GLYCOL (HEALTHYLAX) 3350 17 GM PACKET PO PRN (13:06)
[2024-07-15] MEDS ORDERED: NICOTINE POLACRILEX 4 MG GUM BUC PRN (13:06)
[2024-07-15] MEDS ORDERED: NALOXONE (NARCAN) HCL 4 MG/0.1 ML SPRAY NS PRN (13:06)
[2024-07-15] MEDS ORDERED: MAGNESIUM HYDROX 2400MG/30ML ORAL SUSPENSION 30 ML CUP PO PRN (13:06)
[2024-07-15] MEDS ORDERED: NICOTINE POLACRILEX 4 MG LOZENGE BC PRN (13:06)
[2024-07-15] MEDS ORDERED: BENZONATATE 200 MG CAPSULE PO PRN (13:06)
[2024-07-15] MEDS ORDERED: IBUPROFEN 400 MG TABLET (FP) PO PRN (13:06)
[2024-07-15] MEDS ORDERED: MAG HYDROX/AL HYDROX/SIMETH 30 ML UNIT-DOSE CUP PO PRN (13:06)
[2024-07-15] MEDS: GABAPENTIN 100 MG CAPSULE PO SCH (14:08)
[2024-07-15] MEDS: traZODone HCL 50 MG TABLET (FP) PO SCH (23:27)
[2024-07-15] MEDS: MELATONIN 5 MG TABLETS PO SCH (23:27)
[2024-07-15] MEDS: THIAMINE 100 MG TABLET PO SCH (23:28)
[2024-07-16] MEDS ORDERED: NALOXONE (NYS OPIOID OVERDOSE PROGRAM) 4 MG/0.1 ML SPRAY NS PRN (08:10)
[2024-07-16] MEDS ORDERED: PANTOPRAZOLE 40 MG TABLET PO PRN (08:16)
[2024-07-16] MEDS: NALOXONE (NARCAN) HCL 4 MG/0.1 ML SPRAY NS ONE (09:15)
[2024-07-16] MEDS: PRENATAL VITAMINS W/ FOLIC ACID TABLET (FP) PO SCH (09:42)
[2024-07-16] MEDS ORDERED: PANTOPRAZOLE 40 MG TABLET PO SCH (10:00)
[2024-07-16] MEDS: LOPERAMIDE HCL 2 MG CAPSULE PO PRN (11:55)
[2024-07-18] MEDS: METHOCARBAMOL 500 MG TABLET PO PRN (09:35)
[2024-07-18] MEDS: IBUPROFEN 600 MG TABLET (FP) PO PRN (09:35)
[2024-07-19] MEDS: SUVOREXANT 10 MG TABLET PO PRN (21:30)
[2024-07-22] MEDS ORDERED: hydrOXYzine PAMOATE 25 MG CAPSULE (FP) PO PRN (17:15)
[2024-07-22] MEDS: GABAPENTIN 100 MG CAPSULE PO ONE (21:12)
[2024-07-23] MEDS: GABAPENTIN 100 MG CAPSULE PO SCH (06:50)
[2024-07-23] MEDS: ARIPiprazole 2 MG TABLET PO SCH (09:46)
[2024-07-25] MEDS: SUVOREXANT 10 MG TABLET PO PRN (21:07)
[2024-07-27] MEDS: BENZOCAINE/MENTHOL (CHLORASEPTIC ) LOZENGE MM PRN (10:51)
[2024-07-27] MEDS: ACETAMINOPHEN 325 MG TABLET (FP) PO PRN (10:52)
[2024-07-29] MEDS ORDERED: MIRTAZAPINE 15 MG TABLET (FP) PO SCH (22:00)
[2024-07-29] MEDS: MIRTAZAPINE 15 MG TABLET (FP) PO SCH (22:06)
[2024-08-08 07:18] VITALS: TEMP 97.6
[2024-08-09 07:24] VITALS: BP 133/90; PULSE 80; RESP 17
[2024-08-09] MEDS: NALOXONE (NYS OPIOID OVERDOSE PROGRAM) 4 MG/0.1 ML SPRAY NS SCH (08:52)
== END 2024-08-09 08:51 | disposition home or self-care (01) | DRG 772 ==
LOC: YASAS 11:54 → Y3E 11:56
PROVIDERS: ADMIT Psychiatry & Neurology Pain Medicine; ATTEND Psychiatry & Neurology Pain Medicine
PROC: HZ42ZZZ Group Counseling for Substance Abuse Treatment, Cognitive-Behavioral (ICD-10-PCS; principal; 2024-07-15)
DX: F10.20 Alcohol dependence, uncomplicated (principal); F14.20 Cocaine dependence, uncomplicated; F17.210 Nicotine dependence, cigarettes, uncomplicated; F31.9 Bipolar disorder, unspecified; F41.9 Anxiety disorder, unspecified; F43.10 Post-traumatic stress disorder, unspecified; K21.9 Gastro-esophageal reflux disease without esophagitis; M54.50 Low back pain, unspecified; G89.29 Other chronic pain
CPT/HCPCS: 82962